=== PATIENT | female | born 1950 | race Caucasian/White ===

== ENCOUNTER 2016-03-14 13:20 | Inpatient (IN) | payer BC, OTHER ==
[~2016-03-14] VITALS: Ht 154.9 cm; Wt 70.5 kg
[~2016-03-14 13:20] MED LIST: CALCIUM 600 +1 EA12 PO; CARVEDILOL12.5 MG PO; COREG3.125 M1 PO; DICYCLOMINE HCL20 MG PO; ELAVIL25 MG PO; FIBER THERAPY0.52 GM PO; FOSAMAX70 MG PO; FUROSEMIDE20 MG PO; HAIR, SKIN &66.7 MCG PO; IMITREX6 MG/0.53 SC; LO-DOSE ASPIRIN81 M1 PO; LOSARTAN POTASS25 MG PO; OXYCONTIN10 MG PO; PAROXETINE HCL10 MG PO; PREVACID30 MG PO; TOLTERODINE TART2 MG PO
[2016-03-14 15:20] LABS: EOSINOPHIL (%) 0.1 % (0-5); HEMATOCRIT 37.5 % (36.0-46.0); IMMATURE GRANULOCYTE (%) 0.3 % (0.0-0.7); IMMATURE GRANULOCYTE COUNT 0.5 K/uL; LYMPHOCYTE COUNT 0.8 K/uL (1.0-2.8); MCH 30.4 PG (29.0-34.0); MCHC 32.5 G/DL (30.0-36.0); MCV 93.5 FL (83-99); MEAN PLAT.VOLUME 10.1 uM^3 (9.5-12.4); MONOCYTE (%) 4.6 % (3-12); MONOCYTE COUNT 0.7 K/uL (0-0.8); NEUTROPHIL (%) 89.1 % (45-76); NEUTROPHIL COUNT 12.8 K/uL (1.8-6.4); PLATELET COUNT 269 K/uL (156-360); RBC DIS.WIDTH-CV 13.8 % (11.8-14.6); RBC DIS.WIDTH-SD 45.7 % (39-53); RED BLOOD COUNT 4.01 M/uL (3.80-5.20); WHITE BLOOD COUNT 14.3 K/uL (4.1-10.2)
[2016-03-14 15:37] LABS: CHLORIDE 105 mEq/L (99-109); POTASSIUM 3.7 mEq/L (3.7-5.4); SODIUM 138 mEq/L (136-147)
[2016-03-14 15:39] LABS: GLUCOSE 131 mg/dL (70-99)
[2016-03-14 15:40] LABS: ANION GAP 10 MEQ/L (2-14)
[2016-03-14 15:41] LABS: TOTAL BILIRUBIN 0.5 mg/dL (0.0-1.0)
[2016-03-14 15:42] LABS: ALKALINE PHOSPHATASE 62 IU/L (3-129)
[2016-03-14 15:43] LABS: GFR ESTIMATE (CALCULATED) > 59 mL/min/
[2016-03-14 15:44] LABS: UREA NITROGEN (BUN) 11 mg/dL (9-23)
[2016-03-14] MEDS ORDERED: RESTASIS 01 DROP/0.4 BOTH EYES (17:33)
[2016-03-14] MEDS ORDERED: MIRALAX255 GM PO (17:33)
[2016-03-14 22:26] VITALS: BP 139/76
[2016-03-15 00:30] VITALS: BP 116/58
[2016-03-15 03:56] VITALS: BP 115/63
[2016-03-15 06:22] LABS: EOSINOPHIL (%) 0 % (0-5); HEMATOCRIT 32.8 % (36.0-46.0); IMMATURE GRANULOCYTE (%) 0.3 % (0.0-0.7); IMMATURE GRANULOCYTE COUNT 0.1 K/uL; MCH 30.6 PG (29.0-34.0); MCHC 32.9 G/DL (30.0-36.0); MCV 92.9 FL (83-99); MEAN PLAT.VOLUME 10.6 uM^3 (9.5-12.4); MONOCYTE (%) 5.4 % (3-12); NEUTROPHIL (%) 88.5 % (45-76); NEUTROPHIL COUNT 16.2 K/uL (1.8-6.4); PLATELET COUNT 284 K/uL (156-360); RBC DIS.WIDTH-CV 14.2 % (11.8-14.6); RBC DIS.WIDTH-SD 47.7 % (39-53); RED BLOOD COUNT 3.53 M/uL (3.80-5.20); WHITE BLOOD COUNT 18.3 K/uL (4.1-10.2)
[2016-03-15 06:47] LABS: ANION GAP 8 MEQ/L (2-14); CHLORIDE 106 MEQ/L (99-109); GFR ESTIMATE (CALCULATED) > 59 mL/min/; GLUCOSE 120 mg/dL (70-99); POTASSIUM 4.1 MEQ/L (3.7-5.4); SAMPLE HEMOLYSIS CHECK 0; SAMPLE ICTERIC CHECK 0; SAMPLE LIPEMIA CHECK 0; SODIUM 139 MEQ/L (136-147); UREA NITROGEN (BUN) 10 mg/dL (9-23)
[2016-03-15 08:23] VITALS: BP 125/78
[2016-03-15 12:11] VITALS: BP 102/57
[2016-03-15 16:30] VITALS: BP 103/64
[2016-03-15 20:00] VITALS: BP 109/66
[2016-03-16 00:11] VITALS: BP 110/64
[2016-03-16 04:05] VITALS: BP 113/72
[2016-03-16 06:19] LABS: HEMATOCRIT 33.6 % (36.0-46.0); MCHC 32.1 G/DL (30.0-36.0); MCV 93.3 FL (83-99); MEAN PLAT.VOLUME 10.6 uM^3 (9.5-12.4); PLATELET COUNT 296 K/uL (156-360); RBC DIS.WIDTH-CV 14.3 % (11.8-14.6); RBC DIS.WIDTH-SD 48.8 % (39-53); WHITE BLOOD COUNT 15.6 K/uL (4.1-10.2)
[2016-03-16 06:58] LABS: ANION GAP 7 MEQ/L (2-14); CHLORIDE 105 MEQ/L (99-109); GFR ESTIMATE (CALCULATED) > 59 mL/min/; GLUCOSE 140 mg/dL (70-99); POTASSIUM 4.2 MEQ/L (3.7-5.4); SAMPLE HEMOLYSIS CHECK 0; SAMPLE ICTERIC CHECK 0; SAMPLE LIPEMIA CHECK 0; SODIUM 136 MEQ/L (136-147); UREA NITROGEN (BUN) 13 mg/dL (9-23)
[2016-03-16 08:17] VITALS: BP 119/66
[2016-03-16 11:30] VITALS: BP 107/55
[2016-03-16 16:39] VITALS: BP 120/86
[2016-03-16 20:02] VITALS: BP 120/70
[2016-03-17] VITALS (7 sets, daily range): BP systolic 100–148; BP diastolic 59–84
[2016-03-17 09:01] LABS: HEMATOCRIT 34.5 % (36.0-46.0); MCH 30.5 PG (29.0-34.0); MCHC 32.5 G/DL (30.0-36.0); MEAN PLAT.VOLUME 10.4 uM^3 (9.5-12.4); PLATELET COUNT 304 K/uL (156-360); RBC DIS.WIDTH-CV 14.4 % (11.8-14.6); RBC DIS.WIDTH-SD 49.5 % (39-53); RED BLOOD COUNT 3.67 M/uL (3.80-5.20); WHITE BLOOD COUNT 13.7 K/uL (4.1-10.2)
[2016-03-17 09:25] LABS: ANION GAP 9 MEQ/L (2-14); CHLORIDE 102 MEQ/L (99-109); GFR ESTIMATE (CALCULATED) > 59 mL/min/; POTASSIUM 4.2 MEQ/L (3.7-5.4); SAMPLE HEMOLYSIS CHECK 0; SAMPLE ICTERIC CHECK 0; SAMPLE LIPEMIA CHECK 0; SODIUM 136 MEQ/L (136-147); UREA NITROGEN (BUN) 13 mg/dL (9-23)
[2016-03-17 09:26] LABS: GLUCOSE 218 mg/dL (70-99)
[2016-03-18 04:26] VITALS: BP 130/78
[2016-03-18 07:46] VITALS: BP 136/65
[2016-03-18] MEDS ORDERED: LEVAQUIN750 MG PO (08:32)
[2016-03-18] MEDS ORDERED: FLAGYL500 MG PO (08:32)
[2016-03-18] MEDS ORDERED: PREDNISONE10 MG PO (08:32)
[2016-03-18] MEDS ORDERED: GUAIFENESI100 MG/5 M PO (08:32)
[2016-03-18 11:35] VITALS: BP 116/70
== END 2016-03-18 13:25 | disposition home or self-care (01) | DRG 178 ==
LOC: EME → EDBD 13:20 → EME 13:20 → EDOF 18:15 → 3EAST 18:15
PROVIDERS: Emergency Medicine; Hospitalist; Physician Assistant
DX: J69.0 Pneumonitis due to inhalation of food and vomit (principal); R09.02 Hypoxemia; I11.0 Hypertensive heart disease with heart failure; I50.9 Heart failure, unspecified; I47.2 Ventricular tachycardia; I49.3 Ventricular premature depolarization; I42.9 Cardiomyopathy, unspecified; I34.0 Nonrheumatic mitral (valve) insufficiency; G89.29 Other chronic pain; G43.909 Migraine, unspecified, not intractable, without status migrainosus; K21.9 Gastro-esophageal reflux disease without esophagitis; F32.9 Major depressive disorder, single episode, unspecified
CPT/HCPCS: 71010; 80048; 80048 91; 80053; 83605; 85025; 85025 91; 85027; 87040; 87070; 87205; 94010; 94640; 94640 76; 94644; 99202; 99281; 99285; J0456; J0696; J1644; J1956; J7050; J7512; S0030

== ENCOUNTER 2017-04-15 10:09 | Observation (INO) | payer BC ==
[~2017-04-15] VITALS: Ht 154.9 cm; Wt 85.8 kg
[~2017-04-15 10:09] MED LIST changes: +FLAGYL500 MG PO; +GUAIFENESI100 MG/5 M PO; +IMITREX6 MG/0.52 SC; -IMITREX6 MG/0.53 SC; +LEVAQUIN750 MG PO; +MIRALAX255 GM PO; +PREDNISONE10 MG PO; +RESTASIS 01 DROP/0.4 BOTH EYES
[2017-04-15 10:42] LABS: BASOPHIL (%) 1.3 % (0-1); BASOPHIL COUNT 0.1 K/uL (0-0.1); EOSINOPHIL (%) 5.2 % (0-5); EOSINOPHIL COUNT 0.3 K/uL (0-0.3); HEMATOCRIT 38.6 % (36.0-46.0); HEMOGLOBIN 12.6 G/DL (11.9-15.5); IMMATURE GRANULOCYTE (%) 0.7 % (0.0-0.7); LYMPHOCYTE COUNT 1.7 K/uL (1.0-2.8); MCH 30.8 PG (29.0-34.0); MCHC 32.6 G/DL (30.0-36.0); MCV 94.4 FL (83-99); MONOCYTE (%) 16.2 % (3-12); NEUTROPHIL (%) 48.6 % (45-76); PLATELET COUNT 346 K/uL (156-360); RBC DIS.WIDTH-SD 49.1 % (39-53); RED BLOOD COUNT 4.09 M/uL (3.80-5.20); WHITE BLOOD COUNT 6.1 K/uL (4.1-10.2)
[2017-04-15 10:51] LABS: CHLORIDE 105 mEq/L (99-109); POTASSIUM 4.1 mEq/L (3.7-5.4); SODIUM 136 mEq/L (136-147)
[2017-04-15 10:53] LABS: GLUCOSE 109 mg/dL (70-99); PTT 28.6 SEC (25-37)
[2017-04-15 10:57] LABS: CREATININE 0.9 mg/dL (0.6-1.3); GFR ESTIMATE (CALCULATED) > 59 mL/min/
[2017-04-15 10:58] LABS: UREA NITROGEN (BUN) 10 mg/dL (9-23)
[2017-04-15 11:04] LABS: TROP-I INTERPRETATION NEGATIVE; TROPONIN-I < 0.01 ng/mL (0.0-0.30)
[2017-04-15] MEDS ORDERED: CALCIUM 500 MG1 EACH PO (12:28)
[2017-04-15] MEDS ORDERED: LORATADINE10 M2 PO (12:29)
[2017-04-15] MEDS ORDERED: VENTOLIN HFA18 GM IH (12:30)
[2017-04-15] MEDS ORDERED: CINNAMON500 MG PO (12:30)
[2017-04-15] MEDS ORDERED: HYDROCODON-ACE1 EAC7 PO (12:37)
[2017-04-15 13:25] VITALS: BP 146/82
[2017-04-15 15:47] VITALS: BP 109/71
[2017-04-15 17:27] LABS: TROP-I INTERPRETATION NEGATIVE; TROPONIN-I < 0.01 ng/mL (0.0-0.30)
[2017-04-15 19:06] VITALS: BP 116/60
[2017-04-15 23:46] LABS: TROP-I INTERPRETATION NEGATIVE; TROPONIN-I < 0.01 ng/mL (0.0-0.30)
[2017-04-16 00:27] VITALS: BP 131/76
[2017-04-16 04:06] VITALS: BP 123/71
[2017-04-16 07:16] VITALS: BP 128/72
== END 2017-04-16 11:02 | disposition home or self-care (01) ==
LOC: EME 10:09 → EDOF 11:37 → 5WEST 11:37 → EDOF 11:37 → ENRESERV 11:41 → 5WEST 13:12
PROVIDERS: Emergency Medicine; Internal Medicine
DX: R07.9 Chest pain, unspecified (principal); I47.2 Ventricular tachycardia; I34.0 Nonrheumatic mitral (valve) insufficiency; I10 Essential (primary) hypertension; K21.9 Gastro-esophageal reflux disease without esophagitis; I42.9 Cardiomyopathy, unspecified; R06.02 Shortness of breath; Z82.49 Family history of ischemic heart disease and other diseases of the circulatory system; Z88.8 Allergy status to other drugs, medicaments and biological substances
CPT/HCPCS: 71045; 80048; 84484; 85025; 85610; 85730; 93005; 99281; 99285; G0378; J1650

== ENCOUNTER → 2017-04-22 | Outpatient (CLI) | payer BC ==
[~2017-04-22] MED LIST changes: +CALCIUM 500 MG1 EACH PO; +CINNAMON500 MG PO; +HYDROCODON-ACE1 EAC7 PO; +LORATADINE10 M2 PO; +VENTOLIN HFA18 GM IH
== END | disposition home or self-care (01) ==
DX: M17.12 Unilateral primary osteoarthritis, left knee (principal); R26.2 Difficulty in walking, not elsewhere classified; M25.562 Pain in left knee; M25.662 Stiffness of left knee, not elsewhere classified; M62.81 Muscle weakness (generalized); Z74.1 Need for assistance with personal care
CPT/HCPCS: 97150 GO; 97161 GP; 97165 GO; 97530 GP

== ENCOUNTER 2017-05-04 22:05 | Inpatient (IN) | payer BC, OTHER ==
[~2017-05-04] VITALS: Ht 154.9 cm; Wt 71.6 kg
[~2017-05-04 22:05] MED LIST changes: +IRON325 M1 PO
[2017-05-05 08:18] VITALS: BP 143/73
[2017-05-05 12:18] LABS: HEMOGLOBIN 11.3 G/DL (11.9-15.5); MCH 30.5 PG (29.0-34.0); MCHC 32.3 G/DL (30.0-36.0); MCV 94.3 FL (83-99); PLATELET COUNT 322 K/uL (156-360); RBC DIS.WIDTH-CV 13.7 % (11.8-14.6); RBC DIS.WIDTH-SD 47.5 % (39-53); RED BLOOD COUNT 3.71 M/uL (3.80-5.20); WHITE BLOOD COUNT 7.9 K/uL (4.1-10.2)
[2017-05-05 12:44] VITALS: BP 139/71
[2017-05-05 16:00] VITALS: BP 119/68
[2017-05-05 20:12] VITALS: BP 134/71
[2017-05-06 00:18] VITALS: BP 137/63
[2017-05-06 03:54] VITALS: BP 130/70
[2017-05-06 05:50] LABS: HEMATOCRIT 33.9 % (36.0-46.0); HEMOGLOBIN 11.1 G/DL (11.9-15.5); MCV 95.5 FL (83-99)
[2017-05-06 06:05] LABS: CHLORIDE 99 MEQ/L (99-109); CREATININE 0.8 MG/DL (0.6-1.3); GFR ESTIMATE (CALCULATED) > 59 mL/min/; GLUCOSE 116 mg/dL (70-99); POTASSIUM 3.9 MEQ/L (3.7-5.4); SODIUM 131 MEQ/L (136-147); UREA NITROGEN (BUN) 7 mg/dL (9-23)
[2017-05-06 08:13] VITALS: BP 106/69
[2017-05-06 11:42] VITALS: BP 101/53
[2017-05-06 15:32] VITALS: BP 152/70
[2017-05-06 20:24] VITALS: BP 142/71
[2017-05-07 00:05] VITALS: BP 176/81
[2017-05-07 04:05] VITALS: BP 173/84
[2017-05-07 05:18] LABS: HEMATOCRIT 31.3 % (36.0-46.0); HEMOGLOBIN 10.4 G/DL (11.9-15.5)
[2017-05-07 05:19] LABS: MCV 91.3 FL (83-99)
[2017-05-07 08:00] VITALS: BP 153/85
[2017-05-07] MEDS ORDERED: CELECOXIB200 MG PO (08:36)
[2017-05-07] MEDS ORDERED: ENDOCET 5-3251 EACH PO (08:36)
[2017-05-07] MEDS ORDERED: XARELTO20 MG PO (08:36)
[2017-05-07] MEDS ORDERED: XARELTO15 MG PO (08:36)
[2017-05-07 11:36] VITALS: BP 96/58
[2017-05-07 15:26] VITALS: BP 137/66
[2017-05-07 19:51] VITALS: BP 148/79
[2017-05-08 00:05] VITALS: BP 170/84
[2017-05-08 04:30] VITALS: BP 116/67
[2017-05-08 08:24] VITALS: BP 122/65
== END 2017-05-08 10:00 | DRG 470 ==
LOC: ENRESERV 22:05 → 2SOUTH 05-05 06:27 → 3WEST 05-05 12:28 → 2SOUTH 05-05 15:30 → 3WEST 05-08 10:00
PROVIDERS: Orthopaedic Surgery
PROC: 0SRD0J9 Replacement of Left Knee Joint with Synthetic Substitute, Cemented, Open Approach (ICD-10-PCS; principal; 2017-05-05)
DX: M17.12 Unilateral primary osteoarthritis, left knee (principal); I50.32 Chronic diastolic (congestive) heart failure; I82.442 Acute embolism and thrombosis of left tibial vein; I11.0 Hypertensive heart disease with heart failure; K21.9 Gastro-esophageal reflux disease without esophagitis; E87.1 Hypo-osmolality and hyponatremia; F32.9 Major depressive disorder, single episode, unspecified; F41.9 Anxiety disorder, unspecified; G43.909 Migraine, unspecified, not intractable, without status migrainosus; H04.123 Dry eye syndrome of bilateral lacrimal glands; R32 Unspecified urinary incontinence; M81.0 Age-related osteoporosis without current pathological fracture; E66.3 Overweight; Z68.29 Body mass index [BMI] 29.0-29.9, adult; G89.29 Other chronic pain; I42.8 Other cardiomyopathies; I34.0 Nonrheumatic mitral (valve) insufficiency; D64.9 Anemia, unspecified
CPT/HCPCS: 73560; 80048; 85014; 85018; 85027; 93971; 94799; C1713; J0131; J0690; J1200; J1650; J1885; J2250; J2405; J2795; J3010; J7050

== ENCOUNTER → 2017-07-16 | Outpatient (CLI) | payer OTHER ==
[~2017-07-16] MED LIST changes: +CELECOXIB200 MG PO; +ENDOCET 5-3251 EACH PO; +XARELTO15 MG PO; +XARELTO20 MG PO
== END | disposition home or self-care (01) ==
LOC: RES 08:31
DX: J45.998 Other asthma (principal); R05 Cough
CPT/HCPCS: 94060; 94726; 94729

== ENCOUNTER 2017-09-29 16:49 | Emergency (ER) | payer OTHER ==
[~2017-09-29] VITALS: Ht 154.9 cm; Wt 67.0 kg
[2017-09-29 17:56] LABS: BASOPHIL COUNT 0.1 K/uL (0-0.1); EOSINOPHIL (%) 4.3 % (0-5); EOSINOPHIL COUNT 0.4 K/uL (0-0.3); HEMATOCRIT 37.8 % (36.0-46.0); HEMOGLOBIN 12.8 G/DL (11.9-15.5); IMMATURE GRANULOCYTE (%) 0.3 % (0.0-0.7); LYMPHOCYTE (%) 26.9 % (15-42); LYMPHOCYTE COUNT 2.4 K/uL (1.0-2.8); MCH 30.3 PG (29.0-34.0); MCHC 33.9 G/DL (30.0-36.0); MCV 89.6 FL (83-99); MONOCYTE (%) 9.3 % (3-12); MONOCYTE COUNT 0.8 K/uL (0-0.8); NEUTROPHIL (%) 58.2 % (45-76); NEUTROPHIL COUNT 5.3 K/uL (1.8-6.4); PLATELET COUNT 370 K/uL (156-360); RBC DIS.WIDTH-CV 13.3 % (11.8-14.6); RBC DIS.WIDTH-SD 43.8 % (39-53); RED BLOOD COUNT 4.22 M/uL (3.80-5.20)
[2017-09-29 18:05] LABS: INTER. NORMALIZED RATIO 1.5
[2017-09-29 18:06] LABS: ALBUMIN 4.2 g/dL (3.2-4.8); CHLORIDE 103 mEq/L (99-109); POTASSIUM 4.2 mEq/L (3.7-5.4); SODIUM 139 mEq/L (136-147)
[2017-09-29 18:08] LABS: GLUCOSE 94 mg/dL (70-99); TOTAL PROTEIN 7.8 g/dL (6.4-8.3)
[2017-09-29 18:10] LABS: TOTAL BILIRUBIN 0.6 mg/dL (0.0-1.0)
[2017-09-29 18:12] LABS: ALKALINE PHOSPHATASE 83 IU/L (3-129); GFR ESTIMATE (CALCULATED) 58 mL/min/
[2017-09-29 18:13] LABS: UREA NITROGEN (BUN) 13 mg/dL (9-23)
[2017-09-29 18:14] LABS: AST (GOT) 57 IU/L (2-34)
[2017-09-29 18:15] LABS: ALT (GPT) 26 IU/L (3-49)
[2017-09-29 18:17] LABS: TROP-I INTERPRETATION NEGATIVE; TROPONIN-I < 0.01 ng/mL (0.0-0.30)
[2017-09-29 19:07] LABS: CREATINE KINASE 2367 IU/L (1-294)
[2017-09-29] MEDS ORDERED: PERCOCET 10/1 TABLET PO (21:00)
[2017-09-29 22:08] VITALS: BP 185/98
== END 2017-09-29 22:09 | disposition home or self-care (01) ==
LOC: EME 16:49
PROVIDERS: Emergency Medicine
DX: S12.400A Unspecified displaced fracture of fifth cervical vertebra, initial encounter for closed fracture (principal); S00.83XA Contusion of other part of head, initial encounter; S40.011A Contusion of right shoulder, initial encounter; S00.211A Abrasion of right eyelid and periocular area, initial encounter; R40.2412 Glasgow coma scale score 13-15, at arrival to emergency department; W11.XXXA Fall on and from ladder, initial encounter; Z79.01 Long term (current) use of anticoagulants; I10 Essential (primary) hypertension
CPT/HCPCS: 70450; 71260; 72125; 80053; 82550; 84484; 85025; 85610; 93005; 99281; 99284; J3010; J7040